=== PATIENT | male | born 1945 | race Caucasian/White ===

== ENCOUNTER → 2017-01-04 | Day surgery (SDC) | payer MEDICARE ==
[~2017-01-04] MED LIST: ACETAMINOPHEN 1000 MG/100 ML VIAL IV ONE; BUPIVACAINE/EPINEPHRINE 0.25% PF 10 ML VIAL ONE; LACTATED RINGER'S 1000 ML INJ 1,000 ML ONE; LIDOCAINE 1%/EPINEPHrine 1:100,000 SOLN 20 ML VIAL ONE; MIDAZOLAM HCL 2 MG/2 ML VIAL ONE; ONDANSETRON HCL 4 MG/2 ML VIAL IV PUSH ONE; PROPOFOL 200 MG/20 ML AMP IV ONE; SODIUM CHLORIDE 0.9% 250 ML ADDBAG IV ONE; VANCOMYCIN HCL 1000 MG VIAL ONE; ceFAZolin INJ 1,000 MG VIAL ONE
--- NOTE | 2017-01-11 11:20 | MP ---
cc: HAM FLYNN M.D. DATE OF SURGERY: 01/04/2017 PROCEDURE Right inguinal hernia repair with mesh. PREOPERATIVE DIAGNOSIS Symptomatic right inguinal hernia, reducible. POSTOPERATIVE DIAGNOSIS Reducible sliding right inguinal hernia containing appendix. ANESTHESIA LMA. SURGEON Carson ESTIMATED BLOOD LOSS Less than 30 mL. FLUIDS 650 mL crystalloid. COMPLICATIONS None. DRAINS None. SPECIMEN None. PROCEDURE IN DETAIL The patient was seen in the holding area and the right groin marked and confirmed by the patient and the undersigned. He was taken to the operating room and placed on the operating table in the supine position. The right groin was shaved, prepped and draped. A timeout was taken confirming the correct patient, site and procedure to be performed. The skin and subcutaneous tissue was infiltrated with local anesthetic and an oblique incision made down over the hernia defect. Dissection was carried down to the external oblique fascia where further subfascial injections were made with local anesthetic. The external oblique fascia was divided and the underlying cord structures brought up on a [place] drain. The iliohypogastric nerve was noted and this was preserved and kept in its washoe tissue as much as possible. Dissection was carried back to the internal ring and the hernia sac was dissected off the spermatic cord structures. This was entered at one point as the wall was quite thin and the hernia sac was noted to have the appendix on one wall. This was taken down carefully off of the cord structures and inverted into the abdominal cavity. The open hernia sac was then closed with a pursestring silk suture. At this point the hernia defect was best felt to be repaired with [employer]rium mesh. A 3 x 6 inch piece was brought up and placed into the defect. The mesh was transfixed to the pubic tubercle with 2-0 Prolene suture which was then run along the shelving edge of the inguinal ligament. The mesh was slit longitudinally and then trimmed to size to fit the defect. Interrupted 2-0 Prolene sutures were then placed medially with care taken to avoid any sutures near the iliohypogastric nerve. The medial leaf of mesh was then placed over the lateral leaf of mesh and fixed to the inguinal ligament and the lateral mesh to create a new internal ring. This was closed down enough to allow for egress of the cord structures but was snug enough to minimize the risk of hernia recurrence. With hemostasis assured 30 mL of 0.25% Marcaine with epinephrine was injected into the transversalis fascia and subcutaneous tissues. The external oblique fascia was then closed with a running 3-0 Vicryl suture with care taken to avoid placing sutures near the iliohypogastric nerve. The underlying tissues were free from the closure. The wound was closed with interrupted 3-0 Vicryl suture and the skin closed with 5-0 PDS in a running subcuticular fashion. The wound was dressed with Telfa and Tegaderm and the patient was taken back to the recovery room in stable condition. He tolerated the procedure well. MD CINTIA Garcia/JENNIFER /12:55 PM /11:08 AM
== END | disposition home or self-care (01) ==
LOC: ESDC 10:34
PROVIDERS: ATTEND Surgery Trauma Surgery
DX: K40.90 Unilateral inguinal hernia, without obstruction or gangrene, not specified as recurrent (principal)
CPT/HCPCS: 00830; 49505; C1781; J0131; J0690; J2250; J2405; J3010; J3370; J7120